=== PATIENT | male | born 1955 | race Caucasian/White ===

== ENCOUNTER → 2017-05-31 | Outpatient (CLI) | payer MEDICARE ==
[~2017-05-31] MED LIST: CYCL10 PO; OXYC5CAP19 PO; SALS500T16 PO
== END | disposition home or self-care (01) ==
LOC: RADPV 12:12
PROVIDERS: ATTEND Family Medicine
DX: I08.0 Rheumatic disorders of both mitral and aortic valves (principal); M47.816 Spondylosis without myelopathy or radiculopathy, lumbar region; M41.85 Other forms of scoliosis, thoracolumbar region; M25.78 Osteophyte, vertebrae; M53.86 Other specified dorsopathies, lumbar region
CPT/HCPCS: 72070; 72100; 93306

== ENCOUNTER 2017-09-26 14:10 | Emergency (ER) | payer MEDICARE ==
[~2017-09-26] VITALS: Ht 172.7 cm; Wt 63.6 kg
[2017-09-26] MEDS ORDERED: TRAM50TA4 PO (14:20)
[2017-09-26] MEDS ORDERED: GABA-529 PO (14:20)
[2017-09-26] MEDS ORDERED: KETOROLAC TROMETHAMINE 60 MG/2 ML VIAL IM ONE (14:45)
[2017-09-26] MEDS ORDERED: METHOCARBAMOL 500 MG TABLET PO ONE (14:45)
[2017-09-26 15:42] VITALS: BP 123/77
== END 2017-09-26 16:14 | disposition home or self-care (01) ==
LOC: EMS 14:11
DX: G89.29 Other chronic pain (principal); M54.5 Low back pain; Z79.899 Other long term (current) drug therapy
CPT/HCPCS: 96372; 99283; J1885

== ENCOUNTER 2017-11-26 19:37 | Emergency (ER) | payer MEDICARE ==
[~2017-11-26] VITALS: Ht 170.2 cm; Wt 81.8 kg
[~2017-11-26 19:37] MED LIST changes: +GABA-529 PO; -SALS500T16 PO; +TRAM50TA4 PO
[2017-11-26] MEDS ORDERED: LORazepam 2 MG/ML VIAL IM ONE (21:45)
[2017-11-26] MEDS ORDERED: DiphenhydrAMINE HCL 50 MG/ML VIAL IM ONE (21:45)
[2017-11-26] MEDS ORDERED: HALOPERIDOL LACTATE 5 MG/ML VIAL IM ONE (21:45)
[2017-11-26 22:30] VITALS: BP 146/87
[2017-11-26] MEDS ORDERED: HYDROCODONE/ACETAMINOPHEN 5-325 MG TABLET PO ONE (22:45)
== END 2017-11-26 23:01 | disposition home or self-care (01) ==
LOC: EMS 19:38
DX: G89.29 Other chronic pain (principal); M54.5 Low back pain; R03.0 Elevated blood-pressure reading, without diagnosis of hypertension; Z79.899 Other long term (current) drug therapy
CPT/HCPCS: 99283

== ENCOUNTER 2018-02-05 07:31 | Emergency (ER) | payer MEDICARE ==
[~2018-02-05] VITALS: Ht 175.3 cm; Wt 65.9 kg
[2018-02-05] MEDS: KETOROLAC TROMETHAMINE 60 MG/2 ML VIAL IM ONE (09:13)
[2018-02-05] MEDS: HYDROCODONE/ACETAMINOPHEN 5-325 MG TABLET PO ONE (09:13)
[2018-02-05 09:17] VITALS: BP 100/71
== END 2018-02-05 09:28 | disposition home or self-care (01) ==
LOC: EMS 07:32
DX: G89.29 Other chronic pain (principal); Z76.0 Encounter for issue of repeat prescription
CPT/HCPCS: 96372; 99283; J1885

== ENCOUNTER 2018-02-10 03:14 | Emergency (ER) | payer MEDICARE ==
[~2018-02-10] VITALS: Ht 182.9 cm; Wt 77.0 kg
[2018-02-10] MEDS ORDERED: KETOROLAC TROMETHAMINE 60 MG/2 ML VIAL IM ONE (04:15)
[2018-02-10 04:33] VITALS: BP 110/77
== END 2018-02-10 05:10 | disposition home or self-care (01) ==
LOC: EMS 03:16
DX: G89.29 Other chronic pain (principal); M54.5 Low back pain; F17.210 Nicotine dependence, cigarettes, uncomplicated
CPT/HCPCS: 96372; 99283; 99406; J1885